=== PATIENT | male | born 1990 | race Caucasian/White ===

== ENCOUNTER 2018-01-04 09:20 | Emergency (ER) | payer OTHER ==
[~2018-01-04] VITALS: Ht 182.9 cm; Wt 90.7 kg
[2018-01-04 10:02] VITALS: BP 135/82
[2018-01-04] MEDS ORDERED: BACITRACIN TOP OINT 1 UD PKG TOP ONE (10:15)
== END 2018-01-04 11:04 | disposition home or self-care (01) ==
LOC: ER 09:20
DX: T20.00XA Burn of unspecified degree of head, face, and neck, unspecified site, initial encounter (principal); T65.91XA Toxic effect of unspecified substance, accidental (unintentional), initial encounter; Y92.89 Other specified places as the place of occurrence of the external cause